=== PATIENT | female | born 1975 | race Caucasian/White ===

== ENCOUNTER 2024-01-02 17:42 | Emergency (ER) | payer MEDICAID ==
[~2024-01-02] VITALS: Ht 154.9 cm; Wt 82.0 kg
[2024-01-02 19:38] VITALS: BP 126/70; PULSE 60; RESP 18; TEMP 97.9; O2SAT 98
[2024-01-02] MEDS: TETANUS-DIPTH-ACEL PERTUSSIS 0.5ML SYR Tdap IM ONE (20:14)
== END 2024-01-02 20:22 | disposition home or self-care (01) ==
LOC: ER 17:42
DX: S60.413A Abrasion of left middle finger, initial encounter (principal); E78.5 Hyperlipidemia, unspecified; Z98.890 Other specified postprocedural states; W26.0XXA Contact with knife, initial encounter; Y93.89 Activity, other specified; Y92.89 Other specified places as the place of occurrence of the external cause; Y99.8 Other external cause status
CPT/HCPCS: 90471; 90715